=== PATIENT | female | born 1970 | race Caucasian/White ===

== ENCOUNTER 2020-08-25 07:37 | Emergency (ER) | payer BC, SELFPAY ==
[2020-08-25 07:40] VITALS: BP 135/81; PULSE 67; RESP 18; TEMP 36.1; O2SAT 99; BMI 30.7
[2020-08-25 08:04] VITALS: RESP 18; O2SAT 98
[2020-08-25 08:04] LABS: Basophils # 0.1 10^3/uL (0.0-0.1); Basophils % 0.9 %; Eosinophils # 0.1 10^3/uL (0.0-0.8); Eosinophils % 1.6 %; Hematocrit 40.6 % (37.0-47.0); Hemoglobin 13.5 g/dL (11.5-15.3); Lymphocytes # 1.5 10^3/uL (0.8-4.8); Lymphocytes % 22.2 %; Mean Corpuscular HGB Conc 33.3 g/dL (30.0-36.0); Mean Corpuscular Volume 93.3 fL (81-99); Mean Platelet Volume 11.2 fL (7.4-10.4); Monocytes # 0.3 10^3/uL (0.2-0.9); Monocytes % 4.5 %; Neutrophils # 4.72 10^3/uL (1.8-7.7); Neutrophils % 70.7 %; Nucleated Red Blood Cells % 0 %; Platelet Count 264 10^3/cmm (130-400); Red Blood Count 4.35 10^6/uL (4.1-5.3); Red Cell Distribution Width 12.2 % (12.1-15.1); White Blood Count 6.7 10^3/uL (4.0-10.0)
[2020-08-25] MEDS: morphine 4 mg/mL SDV 1 mL 6 MG IVP (08:04)
[2020-08-25] MEDS: ondansetron 2 mg/ML SDV 2 mL 4 MG IVP (08:05)
--- NOTE | 2020-08-25 08:07 | W.ED.FEMALGU ---
HPI - Female Genitourinary General: Chief complaint: Urogenital-Female Stated complaint: Kidney pains/N/V Time Seen by Provider: 08/25/20 07:42 History of Present Illness: HPI Narrative: 49-year-old female presents emergency room complaining of right flank pain. Began overnight she has severe pain radiating down into her right groin. In the nurse's triage note it says left flank pain however she indicated the right to me when I was in the room and confirmed on exam. She also complaining of nausea vomiting she denies any fever no dysuria urgency or frequency she currently has her period so generally noticed that she has had any hematuria. MD elicited complaint: flank pain Pertinent past history: other (History of nephrolithiasis) Onset (ago): hour(s) Location of symptoms: flank Severity: severe Quality of pain: sharp and stabbing Consistency: constant Vaginal bleeding: moderate (Having menses) Urinary symptoms: Flank Pain Exacerbating factors: none Relieving factors: none Associated symptoms: Deny abdominal pain, short of breath, fevers/chills, headache(s), nausea, rash, seizures, syncope, vaginal discharge or weakness Treatment prior to arrival: none Review of Systems Const: Denies: fever(s), chills, body aches, change in appetite, fatigue or malaise ENMT: Denies: throat pain, ear or mastoid pain, nasal discharge or nasal congestion Card: Denies: syncope Resp: Denies: dyspnea, productive cough or non-productive cough GI: Denies: abdominal pain : Denies: vaginal discharge Skin/Breast: Denies: rash or pruritus Neuro: Denies: headache(s) [facility] ED PFSH: Medical History Nephrolithiasis Physical Exam Const: COMMON NORMALS: no acute distress GENERAL APPEARANCE: cooperative and comfortable ORIENTATION/CONSCIOUSNESS: Yes awake, Yes oriented to person, Yes oriented to place and Yes oriented to time HENMT: COMMON NORMALS: normocephalic, atraumatic and hearing grossly normal bilaterally HEAD & SCALP: normocephalic and atraumatic Neck/C-Spine: COMMON NORMALS: no JVD Resp: COMMON NORMALS: normal respiratory effort, No retractions, No use of accessory muscles and clear to auscultation bilaterally AUSCULTATION: clear to auscultation bilaterally Cardio: COMMON NORMALS: no JVD, regular rate, regular rhythm and No murmurs present (Cardio) RATE: regular rate RHYTHM: regular rhythm GI: COMMON NORMALS: Soft to palpation and No hepatosplenomegaly present AUSCULTATION: Yes normoactive bowel sounds PALPATION: Yes Soft to palpation, No Tenderness to palpation present (GI), No Guarding due to palpation present (GI) and Yes No hepatosplenomegaly present Extremity: COMMON NORMALS: normal to inspection, capillary refill normal, no clubbing, cyanosis or edema, no calf tenderness and no pedal edema Neuro: SENSORIUM/ORIENTATION: Yes oriented to person, Yes oriented to place and Yes oriented to time Skin: COMMON NORMALS: no rashes or lesions noted GENERAL SKIN EXAM: no rashes or lesions noted Course Vital Signs: Vital signs: Vital Signs Temperature 96.9 F L 08/25/20 07:40 Pulse Rate 75 08/25/20 09:37 Respiratory Rate 18 08/25/20 09:37 Blood Pressure 122/74 08/25/20 09:37 Pulse Oximetry 96 08/25/20 09:37 MDM - Female MDM Narrative: Medical decision making narrative: Stone slightly greater than 5 mm right proximal ureter. She has pretty well manage her pain at this point will discharge home with pain medication she is to follow-up with Dr. Boone on Saturday morning she will take laxatives the night before and go to clear liquid diet n.p.o. after midnight if has any uncontrolled pain can return to the emergency room Lab Data: Labs: Lab Results 08/25/20 08/25/20 08/25/20 Range/Units 07:52 07:52 08:28 WBC 6.7 (4.0-10.0) 10^3/ uL RBC 4.35 (4.1-5.3) 10^6/u L Hgb 13.5 (11.5-15.3) g/dL Hct 40.6 (37.0-47.0) % MCV 93.3 (81-99) fL MCH 31.0 (28.0-34.0) pg MCHC 33.3 (30.0-36.0) g/dL RDW 12.2 (12.1-15.1) % Plt Count 264 (130-400) 10^3/c mm MPV 11.2 H (7.4-10.4) fL Neut % (Auto) 70.7 % Lymph % (Auto) 22.2 % Sunflower % (Auto) 4.5 % Eos % (Auto) 1.6 % Baso % (Auto) 0.9 % Neut # (Auto) 4.72 (1.8-7.7) 10^3/u L Lymph # (Auto) 1.5 (0.8-4.8) 10^3/u L Sunflower # (Auto) 0.3 (0.2-0.9) 10^3/u L Eos # (Auto) 0.1 (0.0-0.8) 10^3/u L Baso # (Auto) 0.1 (0.0-0.1) 10^3/u L Nucleated RBC % (a uto) 0 % Nucleated RBCs # 0.0 /100WBC Sodium 141 (136-145) mmol/L Potassium 4.0 (3.5-5.1) mmol/L Chloride 106 (98-107) mmol/L Carbon Dioxide 22 (22-29) mmol/L Anion Gap 17.0 (5-19) BUN 12 (6-20) mg/dL Creatinine 1.0 H (0.5-0.9) mg/dL GFR Calculation 58.5 L (90-130) mL/min Glucose 116 H (65-115) mg/dL Calculated Osmolal ity 293 (285-295) mOsm/k g Calcium 9.1 (8.5-10.5) mg/dL Total Bilirubin 0.8 (0.15-1.2) mg/dL AST 17 (0-32) U/L ALT 13 (0-33) U/L Alkaline Phosphata se 75 (35-105) IU/L Total Protein 7.3 (6.6-8.7) g/dL Albumin 4.2 (3.5-5.2) g/dL Globulin 3.1 (1.3-4.6) g/dL Urine Color Dark yellow (Yellow) Urine Appearance Hazy A (CLEAR) Urine pH 7 (5-7) Ur Specific Gravit y 1.015 (1.005-1.030) Urine Protein Trace (Negative) Urine Glucose (UA) Norm (Normal) Urine Ketones Negative (Negative) Urine Blood 3+ H (Negative) Urine Nitrate Negative (Negative) Urine Bilirubin Neg (Negative) Urine Urobilinogen Norm (Negative) mg/dL Ur Leukocyte Nessa ase Negative (Negative) Urine RBC Too numerous to c nt H (0-2) /hpf Urine WBC None (0-5) /hpf Ur Squamous Epith Cells None (0-5) /hpf Amorphous Sediment Not Reportable Urine Bacteria 1+ H (NONE) /hpf Discharge Plan Discharge Patient Disposition: Home Clinical Impression: Nephrolithiasis Condition: Stable Prescriptions: New hydrocodone-acetaminophen 5-325 mg tablet 1 tab PO Q6H PRN (Reason: pain) Qty: 30 RF: 0 Zofran 4 mg tablet 4 mg PO Q6H PRN (Reason: nausea and vomiting) Qty: 20 RF: 0 tamsulosin 0.4 mg capsule 0.4 mg PO DAILY Qty: 30 RF: 0 Discharge Orders: Discharge ED (Routine); Ordered 08/25/20 Ordered By: John Campbell Discharge Diet: Usual diet Discharge Activity: Increase activity as tolerated Patient Instructions: Kidney Stones (ED), How to Strain Your Urine (ED) Activity Restrictions/Additional Instructions: Dr. Boone's office will call with an appointment for Saturday morning. Saturday evening at around 5 or 6 PM take a half a bottle of mag citrate. Clear liquids after that until 8 AM then n.p.o., you may take meds with sips of water. If pain becomes uncontrollable return to the emergency room. Coding Level of Care Code ED Liquefied Petroleum Gasfitter for Grant Fwd Exam Comprehensive
[2020-08-25] MEDS: sodium chloride 0.9% 1,000 ML 999 ML IV (08:12)
[2020-08-25 08:14] VITALS: BP 138/74; PULSE 72; RESP 18; O2SAT 93
--- NOTE | 2020-08-25 08:17 | CT_ITS ---
WS: [id number] CT ABDOMEN PELVIS TECHNIQUE: Noncontrast CT of the abdomen and pelvis with coronal and sagittal reformatted images. CLINICAL INFORMATION: flank pain COMPARISON: CT 4 21,019 DLP: 1867.[address] scans at [facility] use at least one of these dose optimization techniques: automat ed exposure control; mA and/or kV adjustment per patient size (includes targeted exams where dose is matched to clinical indication); or iterative reconstruction. FINDINGS: Bilateral adrenal glands are normal. Obstructing right proximal ureteral calculus measuring 5 mm with mild right hydronephrosis. Mild inflammatory stranding right kidney. Distal ureter is decompressed. No hydronephrosis in the left kidney. Normal GE junction. Slight atelectasis in the lung bases. 3 mm noncalcified nodule in the right lower lobe laterally. Additional 3 mm noncalcified nodule left lower lobe. Mild fatty atrophy of the pancreas. Normal noncontrast liver and gallbladder. Normal caliber a bdominal aorta. Normal sigmoid colon. No evidence of high-grade small or large bowel obstruction. No adenopathy in t he abdomen or pelvis. No inguinal lymphadenopathy.Mild thickening of the cervix and internal cervical os with cystic change. This can be further evaluated with ultrasound. CT/CT kidney stone [id number] IMPRESSION: 1. 5 mm obstructing calculus in the right proximal ureter with moderate hydron ephrosis. Mild inflammatory stranding about the right kidney. 2. Left kidney is decompressed. 3. Two 3 millimeter noncalcified nodules in the lung bases. Recommend 6 month follow-up. 4. Mild thickening of the cervix and internal cervical os with cystic change. This can be further evaluated with ultrasound Notified John Campbell DO at 08/25/2020 9:35 AM.
[2020-08-25 08:33] LABS: Alanine Aminotransferase 13 U/L (0-33); Albumin Level 4.2 g/dL (3.5-5.2); Alkaline Phosphatase 75 IU/L (35-105); Aspartate Amino Transferase 17 U/L (0-32); Blood Urea Nitrogen 12 mg/dL (6-20); Calcium 9.1 mg/dL (8.5-10.5); Carbon Dioxide 22 mmol/L (22-29); Chloride 106 mmol/L (98-107); Creatinine Clr Calc Pharmacy 71.2014; Globulin 3.1 g/dL (1.3-4.6); Glomerular Filtration Rate 58.5 mL/min (90-130); Glucose 116 mg/dL (65-115); Osmolality Calculated 293 mOsm/kg (285-295); Sodium 141 mmol/L (136-145); Total Bilirubin 0.8 mg/dL (0.15-1.2); Total Protein 7.3 g/dL (6.6-8.7)
[2020-08-25 08:51] LABS: Add Urine Microscopic? YES; Bilirubin Urine Neg (Negative); Blood Urine 3+ (Negative); Glucose Urine UA Norm (Normal); Ketones Urine Negative (Negative); Leukocyte Esterase Urine Negative (Negative); Nitrate Urine Negative (Negative); Protein Urine Trace (Negative); Specific Gravity, Urine 1.015 (1.005-1.030); Urine Appearance Hazy (CLEAR); Urine Color Dark Yellow (Yellow); Urobilinogen Urine Norm (Negative); pH Urine 7 (5-7)
[2020-08-25 08:55] LABS: Add Urine Culture? Yes; Bacteria Urine 1+ /hpf; RBC Urine TOO NUMEROUS TO CNT /hpf (0-2)
[2020-08-25 09:37] VITALS: BP 122/74; PULSE 75; RESP 18; O2SAT 96
== END 2020-08-25 09:53 | disposition home or self-care (01) ==
PROVIDERS: Emergency Provider Family Medicine
DX: N20.0 Calculus of kidney (principal); Z87.442 Personal history of urinary calculi
CPT/HCPCS: 12345; 36415; 74176; 80053; 81001; 85025; 87086; 87635; 96361; 96374; 96375; 99283; J2270; J2405; J7030

== ENCOUNTER 2020-08-26 07:05 | Outpatient (CLI) | payer BC, SELFPAY ==
--- NOTE | 2020-08-26 07:20 | XR_ITS ---
WS: [id number] Exam: XR KUB [id number] Date/Time of Exam: 08/26/2020 7:20 AM Reason For Exam: KIDNEY STONE No bowel obstruction or free air. A 5 mm calcification is noted along the right paraspinal region at the level of the L3 and could represent a urinary tract stone. No other abnormal calcifications are i dentified. Visualized organ margins are intact. Moderate amount stool in the transverse and right col on. Regional bony structures are unremarkable. XR/XR KUB [id number] IMPRESSION: 1. No acute abdominal process. 2. 5 mm right paraspinal calcification at the L3 level that could represent a u rinary tract stone.
== END 2020-08-26 07:06 | disposition home or self-care (01) ==
PROVIDERS: Visit Provider Urology
DX: N20.0 Calculus of kidney (principal)
CPT/HCPCS: 74018; 81003

== ENCOUNTER 2020-08-29 11:11 | Day surgery (SDC) | payer BC, SELFPAY ==
[2020-08-26 17:40] VITALS: BMI 30.7
[2020-08-29] VITALS (7 sets, daily range): BP systolic 122–151; BP diastolic 78–100; PULSE 78–108; RESP 15–20; TEMP 36.2–36.6; O2SAT 91–98
--- NOTE | 2020-08-29 11:24 | XRR_ITS ---
PROCEDURE INFORMATION: Exam: XR Abdomen, 1 View Exam date and time: 08/29/2020 11:51 AM Age: 49 years old Clinical indication: Screening exam; Other: Pre operative eswl; Additional info: Preop right proximal ureteral stone eswl TECHNIQUE: Imaging protocol: XR of the abdomen. Views: Frontal supine view of the abdomen. 1 View. COMPARISON: CR XR KUB [id number] 08/26/2020 7:24 AM FINDINGS: Gastrointestinal tract: Normal. No bowel dilation. Bones/joints: There is a faint density measuring 5 mm overlying the right transverse process of the L3 vertebral body. This finding was present on prior examination and is suspicious for a urinary tract stone. XR/XR KUB [id number] IMPRESSION: 1. Faint density possible stone near right L3 transverse process 2. Otherwise No acute findings.
[2020-08-29] MEDS: sodium chloride 0.9% 1,000 ML 30 ML IV (12:28)
[2020-08-29 12:33] LABS: OR HCG Qualitative Urine Negative (Negative)
--- NOTE | 2020-08-29 12:41 | ANES.PREANE2 ---
Pre-Anesthetic Assessment Pre-Anesthetic Assessment: Height/Weight: Height 1.65 m Weight 83.915 kg Temp Pulse Resp BP Pulse Ox 98 F 92 16 140/90 95 08/29/20 12:00 08/29/20 12:00 08/29/20 12:00 08/29/20 12:00 08/29/20 12:00 Preop Diagnosis: Right proximal ureteral stone Proposed Procedure: Operation Date: 08/29/20 13:05 Proposed Procedures p ESWL 19744 13662 N20.1(Not Applicable) - Liban Boone MD s Cystoscopy(Not Applicable) - Liban Boone MD s Ureteral Stent Placement(Right) - Liban Boone MD Familial anesthetic complications: None Was Beta Heidi taken within 24 hours: N/A Last intake: Intake Last Liquid Date 08/28/20 Last Liquid Time 22:00 Last Solid Date 08/27/20 Last Solid Time 17:00 Social: Social History: No alcohol and No tobacco Exam: Pre-Anes Outpt Exam: alert, oriented x 3, clear to auscultation bilaterally and regular rate & rhythm Airway: Cervical ROM: WNL MP: 2 Dentition: Full Anesthetic Plan: ASA status: 1 Anesthesia: General Risk of > 500 ml blood loss (7ml/kg in children): No Meds/Allergies Current Medications: Current Medications Generic Name Dose Route Start Last Admin Trade Name Freq PRN Reason Stop Dose Admin Sodium Chloride 1,000 mls @ 30 ml s/hr 08/29/20 12:00 08/29/20 12:28 Sodium Chloride 0.9% IV 08/30/20 11:59 30 mls/hr .Q24H CAROLINA Administration PFSH Anesthesia PFSH: Medical History Nephrolithiasis Right ureteral calculus Family History Family/Other Diabetes Hypertension Cancer Colon, liver Social History Smoking and tobacco status: never smoked Alcohol intake: never Marital status: Current occupational status: employed Female Reproductive History: Date of last menstrual period: 08/25/20 Data Anesthesia Other Labs: Laboratory Results - last 48 hr 08/29/20 12:31 Urine HCG, Qual Negative Cardiac Studies: No Data to Display
--- NOTE | 2020-08-29 13:17 | P.HPUD_ITS ---
Surgery/Procedure H&P Update DATE OF PROCEDURE: August 29, 2020 DATE H&P PERFORMED: 08/26/20 H&P UPDATE INFORMATION: I have reviewed H&P completed within last 30 days, I have examined patient prior to procedure, No changes to prior documentation and H&P is in [facility] EMR on date indicated PREOP DIAGNOSIS: Right proximal ureteral stone PLANNED PROCEDURE: Operation Date: 08/29/20 13:05 Proposed Procedures p ESWL 86501 20711 N20.1(Not Applicable) - Liban Boone MD s Cystoscopy(Not Applicable) - Liban Boone MD s Ureteral Stent Placement(Right) - Liban Boone MD
--- NOTE | 2020-08-29 13:28 | P.OP_ITS ---
Operative Report Date of procedure: August 29, 2020 Pre-op Diagnosis: Right proximal ureteral stone Procedure Done: 1. Extracorporeal shockwave lithotripsy, right proximal ureteral stone 2. Cystoscopy with right ureteral stent placement Surgeon: Paolo Ship Propeller Finisher: Mauroch: Sumaya Anesthesia: General Estimated blood loss: None Urine output: Not measured Complications: None Findings: stone easily identified and focused upon. Good change noted. Total number of shocks equaled 2500. Condition: stable Disposition: PACU Brief History: Mrs. Sosa is a very pleasant 49-year-old white female who I evaluated for the first time last week with complaints of RIGHT proximal ureteral stone with obstruction identified on CT scan prior to our visit. The stone had not progressed. She had no infectious complications. She was still having some sym ptoms and based on the symptoms and the lack of progression she elected to proceed with treatment now. We reviewed options including endoscopy versus ESWL with or without stent. After detailed explanation of procedures, benefits risks potential complications etc. she elected to proceed with ESWL with or without stent pending initial response of the stone. Procedure: After routine preoperative evaluation examination and and obtaining of informed consent she was taken to the operating suite on 08/29/2020 where general anesthesia was administered without difficulty after appropriate timeout was performed, SCDs confirmed to be functioning, preoperative antibiotics administered, beta-torres protocol confirmed. Position on the Dornier unit such that the stone was located at the focal point utilizing biplanar fluoroscopy. Shock head was positioned posteriorly. Shockwave therapy was initiated intensity of 1 and advanced an intensity of 4. A several minute pause was conducted after approximately 300 shocks. Rate was initiated at 60. Good change was noted early. By the completion of the procedure the stone could not be readily identified. For that reason it was decided to NOT leave a stent indwelling. She tolerated procedure well without complications and was awakened in the operating room and returned to the recovery room in stable condition PLANS: 1. Anticipate discharge from outpatient surgery 2. Follow-up in 2 to 3 weeks with KUB sooner for increasing symptoms.
[2020-08-29] MEDS: levofloxacin-dextrose 5 % 500 MG/100 ML PREMIX 100 MG IV (13:30)
--- NOTE | 2020-08-29 14:37 | P.PCN_ITS ---
PACU note PACU note: VSS, Good respiratory effort, report to HARNESS RACING HANDICAPPER Post-Anesthesia Exam: awake
--- NOTE | 2020-08-29 14:37 | PM.PACU ---
PACU note PACU note: VSS, Good respiratory effort, report to COMPLIANCE QUALITY PERFORMANCE ANALYST Post-Anesthesia Exam: awake
== END 2020-08-29 15:44 | disposition home or self-care (01) ==
PROVIDERS: Anesthesiology; Visit Provider Urology
PROC: (CPT 50590; principal; 2020-08-29 13:05)
DX: N20.1 Calculus of ureter (principal)
CPT/HCPCS: 50590; 52332; 12345; 74018; 81025; 84703; J1100; J1956; J2405; J2704; J2710; J3010; J3490; J7030

== ENCOUNTER 2020-09-20 07:52 | Outpatient (CLI) | payer BC, SELFPAY ==
--- NOTE | 2020-09-20 07:45 | XR_ITS ---
WS: [id number] Exam: XR KUB [id number] Date/Time of Exam: 09/20/2020 8:00 AM Reason For Exam: Stones Comparison 08/29/2020. No bowel obstruction or free air. No abnormal calcifications noted in the region of the kidneys. Stefanie ral small nonspecific bilateral pelvic calcifications noted. Visualized organ margins are intact. Bon y elements of the pelvis and lumbar spine appear normal. XR/XR KUB [id number] IMPRESSION: 1. No acute abdominal process. 2. No abnormal calcifications noted in the region of the kidneys.
== END 2020-09-20 07:53 | disposition home or self-care (01) ==
LOC: RAD 07:55
PROVIDERS: Visit Provider Urology
DX: N20.1 Calculus of ureter (principal)
CPT/HCPCS: 74018; 81003; 82365; 88300

== ENCOUNTER 2021-03-20 08:32 | Outpatient (CLI) | payer BC, SELFPAY ==
--- NOTE | 2021-03-20 08:45 | XR_ITS ---
WS: [id number] Exam: XR KUB [id number] Date/Time of Exam: 03/20/2021 8:45 AM Reason For Exam: NEPHROLITHIASIS No bowel obstruction or free air identified. Visualized organ margins are unremarkable in appearance. No obvious calcifications are noted over the renal silhouettes. Regional bony elements are intact. XR/XR KUB [id number] IMPRESSION: 1. No acute abdominal finding.
== END 2021-03-20 08:33 | disposition home or self-care (01) ==
PROVIDERS: Visit Provider Urology
DX: N20.0 Calculus of kidney (principal)
CPT/HCPCS: 74018; 81003

== ENCOUNTER → 2021-05-17 08:58 | Outpatient (BNVA) | payer BC, SELFPAY | PROVIDERS: Visit Provider Family Medicine | DX: Z76.89 Persons encountering health services in other specified circumstances (principal); Z13.220 Encounter for screening for lipoid disorders; Z13.6 Encounter for screening for cardiovascular disorders | CPT/HCPCS: 80053; 80061; 84443; 85025 ==

== ENCOUNTER → 2021-07-07 08:15 | Outpatient (BNVA) | payer BC, SELFPAY | PROVIDERS: PCP Family Medicine; Visit Provider Surgery | DX: Z20.822 Contact with and (suspected) exposure to COVID-19 (principal); Z11.52 Encounter for screening for COVID-19 | CPT/HCPCS: 87635 ==

== ENCOUNTER 2021-07-13 10:13 | Day surgery (SDC) | payer BC, SELFPAY ==
[2021-07-11 13:51] VITALS: BMI 34.9
--- NOTE | 2021-07-13 10:24 | ANES.PREANE2 ---
Pre-Anesthetic Assessment Pre-Anesthetic Assessment: Height/Weight: Height 1.65 m Weight 95.254 kg Preop Diagnosis: diagnostic Proposed Procedure: Operation Date: 07/13/21 11:45 Proposed Procedures p Colonoscopy 32392 Z80.0(Not Applicable) - Luis E Cochran MD Was Beta Heidi taken within 24 hours: N/A Was Clonidine taken within 24 hours: N/A Social: Social History: No alcohol and No tobacco Exam: Pre-Anes Outpt Exam: alert, oriented x 3, clear to auscultation bilaterally and regular rate & rhythm Airway: Submandibular: WNL Cervical ROM: WNL MP: 2 Dentition: Full History/ROS: No significant history except as noted Metabolic: Metabolic: Morbid obesity Anesthetic Plan: ASA status: 2 Anesthesia: MAC Risk of > 500 ml blood loss (7ml/kg in children): No PFSH Anesthesia PFSH: Medical History Nephrolithiasis Right ureteral calculus UPJ stone treated with ESWL without stent August 2020 Excellent response. Stone analysis sent. Family History Family/Other Diabetes Hypertension Cancer Colon, liver Social History Alcohol intake: never Marital status: Current occupational status: employed Female Reproductive History: Date of last menstrual period: 08/25/20 Data Anesthesia Cardiac Studies: No Data to Display
[2021-07-13 11:34] VITALS: BP 136/92; PULSE 77; RESP 18; TEMP 36.6; O2SAT 95
[2021-07-13] MEDS: sodium chloride 0.9% 1,000 ML 30 ML IV (11:39)
--- NOTE | 2021-07-13 12:20 | W.PM.OPSFHP ---
Same Day Surgery H&P Indication for Procedure/HPI DATE OF PROCEDURE: July 13, 2021 CHIEF COMPLAINT/INDICATIONFOR SURGICAL PROCEDURE: screening colonoscopy PREOP DIAGNOSIS: diagnostic PLANNED PROCEDRUE: Operation Date: 07/13/21 11:45 Proposed Procedures p Colonoscopy 08507 Z80.0(Not Applicable) - Luis E Cochran MD Medications/Allergies* Home Medications Medication Instructions Recorded Confirmed Type No Known Home Medications 09/20/20 07/11/21 History Allergies/Adverse Reactions Allergy/AdvReac Type Severity Reaction Status Date / Time No Known Allergies Allergy Verified 07/13/21 11:28 Current Medications: Generic Name Dose Route Start Last Admin Trade Name Freq PRN Reason Stop Dose Admin Sodium Chloride 1,000 mls @ 30 mls/hr 07/13/21 10:30 07/13/21 11:39 Sodium Chloride 0.9% IV 07/14/21 10:29 30 mls/hr .Q24H [place] Administration Pertinent History/Comorbid Conditions* Medical History (Updated 05/16/21 @ 13:50 by Dimas Waller DO) Nephrolithiasis Right ureteral calculus UPJ stone treated with ESWL without stent August 2020 Excellent response. Stone analysis sent. Family History (Updated 08/26/20 @ 07:54 by Mary Anne Ireland, MAR) Diabetes Family/Other Cancer Family/Other Colon, liver Hypertension Family/Other Social History Alcohol intake: never Marital status: Current occupational status: employed Pertinent Exam Findings alert, oriented x 3 and regular rate & rhythm Recommendations Surgery/Procedure today Coding Level of Care Code Acute Senior Production Manager for Grant Abdi
[2021-07-13 12:53] VITALS: BP 88/53; PULSE 79; RESP 16; TEMP 36.1; O2SAT 95
[2021-07-13 13:00] VITALS: BP 91/59; PULSE 68; RESP 16; O2SAT 96
[2021-07-13 13:11] VITALS: BP 124/78; PULSE 74; RESP 16; O2SAT 94
--- NOTE | 2021-07-13 13:14 | ANE.PACU2 ---
Documented by User: Almaz Fatima CRNA 07/13/21 13:14 Inpatient post-anesthesia follow up: Airway intact: Yes Vital signs: Temperature 97 F Pulse Rate 74 Respiratory Rate 16 Blood Pressure 124/78 Pulse Oximetry 94 Oxygen Delivery Me thod Room Air Oxygen Flow Rate 4 Fraction of Inspir ed Oxygen Hydration adequate: Yes Mental status: Baseline
== END 2021-07-13 13:41 | disposition home or self-care (01) ==
PROVIDERS: PCP Family Medicine; Visit Provider Surgery
PROC: 0DJD8ZZ Inspection of Lower Intestinal Tract, Via Natural or Artificial Opening Endoscopic (ICD-10-PCS; CPT 45378; principal; 2021-07-13 11:45)
DX: Z12.11 Encounter for screening for malignant neoplasm of colon (principal); Z80.0 Family history of malignant neoplasm of digestive organs; Z82.49 Family history of ischemic heart disease and other diseases of the circulatory system; Z83.3 Family history of diabetes mellitus; K57.30 Diverticulosis of large intestine without perforation or abscess without bleeding; K64.8 Other hemorrhoids; D12.5 Benign neoplasm of sigmoid colon; E66.01 Morbid (severe) obesity due to excess calories; Z68.34 Body mass index [BMI] 34.0-34.9, adult
CPT/HCPCS: 45380; 88305; 96360; J2704; J7030

== ENCOUNTER 2022-03-20 07:28 | Outpatient (CLI) | payer BC, SELFPAY ==
--- NOTE | 2022-03-20 07:30 | XR_ITS ---
WS: [id number] KUB, AP view, 03/20/2022 Clinical Data: NEPHROLITHIASIS Comparison: KUB, 03/20/2021. Findings: No abnormal intraabdominal masses or calcifications are seen. There is no dilatated small bowel or ev idence of obstruction. XR/XR KUB [id number] Impression: Negative KUB.
== END 2022-03-20 07:29 | disposition home or self-care (01) ==
LOC: RAD 07:30
PROVIDERS: PCP Family Medicine; Visit Provider Urology
DX: N20.0 Calculus of kidney (principal)
CPT/HCPCS: 74018; 81003